=== PATIENT | female | born 1980 | race Asian ===

== ENCOUNTER 2020-03-20 11:24 | Emergency (ER) | payer OTHER ==
[2020-03-21 12:38] LABS: SARS-CoV-2 MS2 Positive; SARS-CoV-2 N Gene Positive; SARS-CoV-2 S Gene Positive; SARS-CoV-2 orf1ab Positive
== END 2020-03-20 12:01 | disposition home or self-care (01) ==
LOC: ERS 11:24
DX: U07.1 COVID-19 (principal); J02.9 Acute pharyngitis, unspecified
CPT/HCPCS: 87635; 99283; U0003

== ENCOUNTER 2022-08-21 16:08 | Outpatient (CLI) | payer OTHER | END 2022-08-21 16:09 | disposition home or self-care (01) | LOC: BICRAD 16:08 | PROVIDERS: ATTEND Nurse Practitioner Women's Health | DX: R10.11 Right upper quadrant pain (principal) | CPT/HCPCS: 74019 ==